=== PATIENT | female | born 1940 | race Caucasian/White ===

== ENCOUNTER → 2016-07-16 | Outpatient (CLI) | payer MEDICARE ==
[2015-05-02 06:19] VITALS: BP 129/63
[~2016-07-16] MED LIST: ASPI-482 PO; ATOR20TA PO; CHOL200024 PO; DOCU100C5 PO; ESCI20TA10 PO; FERR-26 PO; FISH1CAP PO; GABA-586 PO; GABA600T2 PO; HYDR-2762 PO; LISI10TA2 PO; MULT-245 PO; NAPR220T70 PO; SPIR25TA3 PO; WARF4TAB7 PO
--- NOTE | 2016-07-16 17:15 | RAD ---
DATE: 02/16/2012 EXAM: DIGITAL SCREEN BILAT W/CAD HISTORY: Routine screening COMPARISON: 02/16/2012 This study was interpreted with the benefit of Computerized Aided Detection (CAD). FINDINGS: Breast Density: HETERO The breast parenchyma Is heterogeneously dense, which could reduce sensitivity of mammography. Breast parenchyma level C. There are no dominant suspicious masses, suspicious microcalcifications or evidence of architectural distortion. Benign-appearing calcifications identified in the bilateral breasts. IMPRESSION: Benign findings BI-RADS CATEGORY: 2 BENIGN FINDING RECOMMENDED FOLLOW-UP: 12M 12 MONTH FOLLOW-UP PQRS compliance statement: Patient information was entered into a reminder system with a target due date 07/16/2017 for the next mammogram. Mammography is a sensitive method for finding small breast cancers, but it does not detect them all and is not a substitute for careful clinical examination. A negative mammogram does not negate a clinically suspicious finding and should not result in delay in biopsying a clinically suspicious abnormality. "Our facility is accredited by the [employer] Mammography [employer]."
== END | disposition home or self-care (01) ==
LOC: MAMMO 16:08
PROVIDERS: ATTEND Family Medicine
DX: Z12.31 Encounter for screening mammogram for malignant neoplasm of breast (principal)
CPT/HCPCS: G0202; 77067

== ENCOUNTER → 2017-03-28 | Outpatient (CLI) | payer MEDICARE ==
[2017-03-28] MEDS: REGADENOSON 0.4 MG/5 ML DISP.SYRIN. IV (09:27)
== END | disposition home or self-care (01) ==
LOC: NM 07:29
DX: R07.89 Other chest pain (principal); I10 Essential (primary) hypertension
CPT/HCPCS: 78452; 93017; 96374; 96375; 96376; A9500; J2785

== ENCOUNTER → 2018-04-11 | Outpatient (CLI) | payer MEDICARE ==
[2015-05-02 06:19] VITALS: BP 129/63
[~2018-04-11] MED LIST changes: +DOCU100C28 PO; -DOCU100C5 PO; -ESCI20TA10 PO; -FERR-26 PO; +FERR325T14 PO; -GABA-586 PO; +GABA300C18 PO; -GABA600T2 PO; +GABA600T7 PO; -HYDR-2762 PO; +HYDR-2765 PO; +LEXAPRO20 MG PO; -SPIR25TA3 PO; +SPIR25TA5 PO; +WARF4TAB64 PO; -WARF4TAB7 PO
--- NOTE | 2018-04-11 09:29 | RAD ---
DATE: 04/11/2018 EXAM: MAMMO JERRY SCREENING BILATERAL HISTORY: Routine screening COMPARISON: 07/16/2016 This study was interpreted with the benefit of Computerized Aided Detection (CAD). Breast Density: HETERO The breast parenchyma is heterogenously dense, which could reduce sensitivity of mammography. Breast parenchyma level C. FINDINGS: 2-D and 3-D tomosynthesis imaging was performed in CC and MLO projections. The fibroglandular tissues are heterogeneous and somewhat nodular in character. No new or enlarging breast densities are seen. No spiculated mass or architectural distortion is evident. There are numerous unchanged benign appearing bilateral microcalcifications . IMPRESSION: Stable mammograms without evidence of malignancy. BI-RADS CATEGORY: 2 BENIGN FINDING(S) RECOMMENDED FOLLOW-UP: 12M 12 MONTH FOLLOW-UP PQRS compliance statement: Patient information was entered into a reminder system with a target due date for the next mammogram. Mammography is a sensitive method for finding small breast cancers, but it does not detect them all and is not a substitute for careful clinical examination. A negative mammogram does not negate a clinically suspicious finding and should not result in delay in biopsying a clinically suspicious abnormality. "Our facility is accredited by the [employer] Mammography Program."
== END | disposition home or self-care (01) ==
LOC: MAMMO 07:55
PROVIDERS: ATTEND Family Medicine
DX: Z12.31 Encounter for screening mammogram for malignant neoplasm of breast (principal)
CPT/HCPCS: 77063; 77067

== ENCOUNTER → 2019-09-25 | Outpatient (CLI) | payer MEDICARE ==
[2015-05-02 06:19] VITALS: BP 129/63
== END | disposition home or self-care (01) ==
LOC: SPEC 11:00
PROVIDERS: ATTEND Podiatrist
DX: I70.235 Atherosclerosis of native arteries of right leg with ulceration of other part of foot (principal)
CPT/HCPCS: 87071; 87075; 87077; 87186

== ENCOUNTER 2020-08-08 07:23 | Emergency (ER) | payer MEDICARE ==
[~2020-08-08] VITALS: Ht 160 cm; Wt 78.6 kg
[~2020-08-08 07:23] MED LIST changes: +LISI10TA16 PO; -LISI10TA2 PO
[2020-08-08] MEDS ORDERED: HYDROcodone/APAP 5/325MG 1 TAB TABLET PO ONE (08:30)
--- NOTE | 2020-08-08 08:36 | ED.ADGEN ---
Past Medical History Smoking Status: Former Smoker General Adult EDM: Chief Complaint: UPPER EXTREMITY PAIN HPI: HPI: Patient is a 80 year old female coming in for left arm pain. Patient states she was at her hospital yesterday using her walker to get around but started having left arm pain while she was trying ready for bed. Patient states she had problems with the shoulder before and is cleared for physical therapy but has not had pain this bad in the past. Denies any falls. She is right-handed. Otherwise has been well. Review of Systems: Review of Systems: All other systems within normal limits except for as noted in the HPI Current Medications: Current Medications Medications (Trade) Dose Ordered Sig/Briseida Start Time Stop Time Status Last Admin Dose Admin Acetaminophen/ Hydrocodone Bitart (Lortab 5/325) 1 tab 1X ONCE 08/08/20 08:30 08/08/20 08:33 DC 08/08/20 08:46 1 TAB Allergies: Allergies: Allergies Coded Allergies Type Severity Reaction Last Updated Verified saffron Adverse Reaction Severe Hives 05/02/15 Yes oxycodone Adverse Reaction Intermediate 05/02/15 Yes Physical Exam: PE: Constitutional: Well developed, well nourished, no acute distress, non-toxic appearance. [] HENT: Normocephalic, atraumatic, bilateral external ears normal, nose normal. [] Eyes: PERRLA, conjunctiva normal, no discharge. [] Neck: No rigidity, supple, no stridor. [] Cardiovascular: Regular rate and rhythm, brisk cap refill [] Lungs & Thorax: Non labored symmetric respirations, no tachypnea or respiratory distress [] Abdomen: Soft, nondistended. Skin: Warm, dry, no erythema, no rash. [] Back: Unremarkable Extremities: No deformities, range of motion grossly intact, no lower extremity edema. Difficulty with abduction, tenderness over glenohumeral joint and proximal humerus [] Neurologic: Alert and oriented X 3, no focal deficits noted. [] Psychologic: Affect normal, judgement normal, mood normal. [] Current Patient Data: Vital Signs: Vital Signs Date Time Temp Pulse Resp B/P (MAP) Pulse Ox O2 Delivery O2 Flow Rate FiO2 08/08/20 08:46 24 98 Room Air 08/08/20 07:40 98.1 78 158/81 (106) 98.1 EKG: EKG: [] Heart Score: C/O Chest Pain: No Risk Factors: Risk Factors: DM, Current or recent (<one month) smoker, HTN, HLP, family history of CAD, obesity. Risk Scores: Score 0 - 3: 2.5% MACE over next 6 weeks - Discharge Home Score 4 - 6: 20.3% MACE over next 6 weeks - Admit for Clinical Observation Score 7 - 10: 72.7% MACE over next 6 weeks - Early Invasive Strategies Radiology/Procedures: Radiology/Procedures: [facility] [address] [place], [place] [id number] IMAGING REPORT Signed PATIENT: DANIAL SALINAS ACCOUNT: [id number] : 1940 LOCATION: ER AGE: 80 SEX: F EXAM STATUS: REG ER ORD. PHYSICIAN: NELSON SHEIKH MD REASON: pain PROCEDURE: HUMERUS LEFT Two-view left humerus HISTORY: Pain AP lateral views There is degenerative changes of the glenohumeral joint with marginal spurring. The remaining visualized osseous structures appear normal. IMPRESSION: Degenerative changes of the left shoulder could be secondary to crystal deposition disease i.e. [place] shoulder. No acute findings. Electronically signed by: Janie Conrad III, MD (08/08/2020 9:33 AM) [id number] DICTATED and SIGNED BY: JANIE CONRAD III, MD DATE: 08/08/20 [id number] [] Course & Med Decision Making: Course & Med Decision Making Discussed with orthopedics, Dr. Howe. Recommend arthrocentesis but thinks patient would benefit from a joint injection in clinic. Sling placed, pain medications and instructions for follow-up provided to patient. Dragon Disclaimer: Dragstew Disclaimer: This electronic medical record was generated, in whole or in part, using a voice recognition dictation system. Departure Departure Impression: Primary Impression: Degenerative arthritis of left shoulder region Disposition: 01 HOME / SELF CARE / HOMELESS Condition: STABLE Referrals: [facility] Patient Instructions: Arthritis, Nonspecific Additional Instructions: JOSE FRANCISCO HOWE MD [facility] [address] [facility], [address] [address] Scripts Hydrocodone Bit/Acetaminophen (HYDROCODONE-APAP 5-325 ) 1 Tab Tablet 1 TAB PO PRN Q6HRS PRN for PAIN for 3 Days, #10 TAB 0 Refills Prov: NELSON SHEIKH MD 08/08/20 Naproxen (NAPROXEN) 500 Mg Tablet 1 TAB PO BID for pain for 10 Days, #20 TAB 0 Refills Prov: NELSON SHEIKH MD 08/08/20 NELSON SHEIKH MD Aug 08, 2020 08:36
--- NOTE | 2020-08-08 09:36 | RAD ---
Two-view left humerus HISTORY: Pain AP lateral views There is degenerative changes of the glenohumeral joint with marginal spurring. The remaining visuali zed osseous structures appear normal. IMPRESSION: Degenerative changes of the left shoulder could be secondary to crystal deposition disease i.e. [facility]. No acute findings. Electronically signed by: Navin Alanis III, MD (08/08/2020 9:33 AM) [id number]
[2020-08-08] MEDS ORDERED: HYDR-2761 PO (10:13)
[2020-08-08] MEDS ORDERED: NAPR-514 PO (10:13)
[2020-08-08 10:30] VITALS: BP 144/68
== END 2020-08-08 10:54 | disposition home or self-care (01) ==
LOC: ER 07:23
DX: M19.012 Primary osteoarthritis, left shoulder (principal); Z87.891 Personal history of nicotine dependence; Z88.5 Allergy status to narcotic agent; Z88.8 Allergy status to other drugs, medicaments and biological substances
CPT/HCPCS: 73060; 99285; A4565; 96365